=== PATIENT | male | born 2000 | race Two or more races ===

== ENCOUNTER 2023-10-17 04:07 | Outpatient (CLI) | payer SELFPAY | END 2023-10-17 04:08 | disposition critical access hospital (66) | LOC: EMS 04:07 | DX: S01.412A Laceration without foreign body of left cheek and temporomandibular area, initial encounter (principal); M54.9 Dorsalgia, unspecified; Y04.2XXA Assault by strike against or bumped into by another person, initial encounter | CPT/HCPCS: A0425; A0429 ==

== ENCOUNTER 2023-10-17 04:32 | Emergency (ER) | payer SELFPAY ==
[2023-10-17 04:56] VITALS: O2SAT 98
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
[2023-10-17] MEDS ORDERED: TETANUS IM ONE (05:17)
[2023-10-17] MEDS ORDERED: LIDOCAINE 1% 2 ML VIAL SUBQ STA (05:17)
[2023-10-17] MEDS ORDERED: [UNRECOGNIZED DRUG - OTHER] IM ONE (05:17)
[2023-10-17] MEDS ORDERED: TETANUS/DIPHTHERIA/PERTUSSIS 0.5 ML SYRINGE IM ONE (06:34)
[2023-10-17 08:22] VITALS: BP 103/60
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
== END 2023-10-17 08:21 | disposition home or self-care (01) ==
LOC: ED 04:32
DX: S01.412A Laceration without foreign body of left cheek and temporomandibular area, initial encounter (principal); Y04.2XXA Assault by strike against or bumped into by another person, initial encounter; Y92.009 Unspecified place in unspecified non-institutional (private) residence as the place of occurrence of the external cause; Z23 Encounter for immunization
CPT/HCPCS: 12011; 90471; 99283; 99284